=== PATIENT | male | born 1970 | race African-American/Black ===

== ENCOUNTER 2016-12-22 19:31 | Observation (INO) ==
[2016-12-22] MEDS ORDERED: methylPREDNISolone SOD SUC 125 MG/2 ML VIAL IV STA (19:52)
[2016-12-22] MEDS ORDERED: MORPHINE 2 MG/1 ML SYRINGE IV STA (19:52)
[2016-12-22] MEDS ORDERED: ONDANSETRON 4 MG/2 ML VIAL IV STA (19:52)
[2016-12-22] MEDS ORDERED: FUROSEMIDE 100 MG/10 ML VIAL IV STA (19:52)
[2016-12-22] MEDS ORDERED: NITROGLYCERIN 2% OINT 1 INCH/GM PACK TOP STA (19:52)
[2016-12-22] MEDS ORDERED: ASPIRIN EC 325 MG TABLET PO STA (19:52)
[2016-12-22] MEDS ORDERED: ALBUTEROL/IPRATROPIUM 3 ML NEB RESP TX STA (19:52)
[2016-12-22] MEDS ORDERED: ALUM/MAG/SIMETH/LIDO VISC 1:1 30 ML BOTTLE PO STA (19:54)
--- NOTE | 2016-12-22 19:57 | EKG Report ---
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
[2016-12-22 20:09] LABS: Basophils % 0.3 % (0.0-0.8); Eosinophils # 0.1 10*3/uL (0.0-0.87); Eosinophils % 3.1 % (0.00-10.9); Hemoglobin 12.5 GM/DL (14.0-18.0); Immature Granulocytes % 0.6 %; Immature Granulocytes Absolute 0.02 #; Lymphocytes # 1.2 10*3/uL (1.4-4.0); Lymphocytes % 33.9 % (21.2-54.2); Mean Corpuscular HGB Conc 31.3 GM/DL (32-36); Mean Corpuscular Hemoglobin 25 PG (27-34); Mean Corpuscular Volume 79.5 FL (87-102); Mean Platelet Volume 10.8 FL (9.6-12.0); Monocytes # 0.6 10*3/uL (0.11-0.8); Monocytes % 17.7 % (1.7-12.7); Neutrophils # 1.6 10*3/uL (1.4-7.4); Neutrophils % 44.4 % (38.7-73.9); Platelet Count 157 T/CUMM (130-400); Red Blood Count 5.03 MC/CUMM (3.8-5.5); White Blood Count 3.5 T/CUMM (4-12)
--- NOTE | 2016-12-22 20:12 | Emergency Department Note ---
Simon Huerta Rolonda, am scribing for, and in the presence of, Gerardo John MD 20:09. Alvaro Huerta Charles R, MD, personally performed the services described in this documentation, ascribed by Belen Montes in my presence, and it is both accurate and complete . Arrival - Arrival Chief Complaint: Shortness of Breath Stated Complaint: HARD TO BREATHE/CHEST CONGESTION ED Nursing Triage Note: patient ambulatory to triage with c/o sob for a week now that is getting worse. 96% o2 sat on ra, no distress noted at triage. midsternal cp, denies n/v Mode of Arrival: Ambulatory Limitations: No Limitations Source: Patient, Significant other, Old Records Reviewed, RN Notes Reviewed Time Seen by Provider: 12/22/16 19:45 - History of Present Illness HPI Narrative: Pt is a 46 y/o male who ambulated to the ED with c/o mid chest pain with an onset of days that has worsened. Pt stated that his pain worsened last night which prompted his visit to the ED. Pt states that he currently is taking Torsemide and confirms that he feels "heaviness with deep breaths", has sleep apnea, swelling in both lower extremities, and SOB. He also states that "something feels hard" on his chest and back area. Pt has associated sxs of wet cough. No other complaint/pain in ED. Onset (ago): day(s) Consistency: constant Severity: moderate, severe Severity scale (1-10): 5 Allergies/Adverse Reactions: Allergies Allergy/AdvReac Type Severity Reaction Status Date / Time No Known Allergies Allergy Unverified 12/22/16 20:35 Home Medications: Home Medications Medication Instructions Recorded Confirmed Type Aspirin EC Tab 325 mg PO DAILY 12/22/16 12/22/16 History Atorvastatin [Lipitor] 20 mg PO DAILY 12/22/16 12/22/16 History Carvedilol [Coreg] 6.25 mg PO BID 12/22/16 12/22/16 History Insulin Glargine [Lantus] 70 unit SUBCUT BID 12/22/16 12/22/16 History Potassium Chloride [Klor-Con M20] 20 meq PO DAILY 12/22/16 12/22/16 History Torsemide 100 mg PO BID 12/22/16 12/22/16 History Valsartan 320 mg PO DAILY 12/22/16 12/22/16 History amLODIPine [Norvasc] 10 mg PO DAILY 12/22/16 12/22/16 History Review of System - Review of System 12 point system: reviewed and no additional remarkable complaints except as stated - Review of System Constitutional: Absent: chills, fever Head/Ears/Nose/Throat: Absent: earache, epistaxis Respiratory: Present: cough (wet), respiratory distress (SOB) Cardiovascular: Present: chest pain (mid chest\\) Gastrointestinal: Absent: abdominal pain, nausea, vomiting, diarrhea Musculoskeletal: Absent: arm pain, back pain, neck pain Skin: Absent: rash Neurological: Absent: headache, numbness Medical,Surgical,& Family Hx - Medical History Cardio: History of: Hypertension Endocrine: History of: Diabetes Mellitus (IDDM), Dyslipidemia - Social History Smoking Status: Never smoker Frequency of Alcohol Use: None Type of Drug Use: None Exam Vital Signs: Vital Signs Temperature 98.1 F 12/22/16 19:32 Pulse Rate 82 12/22/16 20:30 Respiratory Rate 18 12/22/16 20:30 Blood Pressure 160/102 12/22/16 20:30 O2 Sat by Pulse Oximetry 98 12/22/16 20:30 - General General appearance: alert, in no apparent distress - Head Head exam: Present: atraumatic, normocephalic - Eye Eye exam: Present: PERRL, EOMI - ENT ENT exam: Present: mucous membranes moist. Absent: mucous membranes dry - Neck Neck exam: Present: full ROM. Absent: tenderness - Chest Chest inspection: Present: symmetric chest wall rise. Absent: tenderness - Respiratory Respiratory exam: Present: rales (bilaterally) - Cardiovascular Cardiovascular exam: Present: regular rate, normal rhythm, normal heart sounds. Absent: bradycardia - Abdominal Exam Abdominal exam: Present: soft, normal bowel sounds. Absent: tenderness - Extremities Exam Extremities exam: Present: pedal edema (+3 lower extremities) - Back Exam Back exam: Present: full ROM. Absent: tenderness - Neurological Exam Neurological exam: Present: alert, oriented X3, CN II-XII intact - Psychiatric Psychiatric exam: Present: normal affect, normal mood - Skin Skin exam: Present: warm, dry, intact, normal color. Absent: rash Course - Consultations Consultation #1: Hospitalist will admit patient Time: 22:30 Results - Labs CBC & BMP: 12/22/16 19:43 12/22/16 19:43 Lab Results: I have reviewed the patients labs Labs: Laboratory Tests 12/22/16 12/22/16 19:43 19:43 WBC 3.5 L RBC 5.03 Hgb 12.5 L Hct 40.0 L MCV 79.5 L MCH 25 L MCHC 31.3 L Plt Count 157 [place] % (Auto) 17.7 H Lymph # (Auto) 1.2 L INR 1.0 PT Patient/Control Mix 10.3 Laboratory Tests 12/22/16 19:43 Sodium 141 Potassium 3.9 Chloride 102 Carbon Dioxide 33 H BUN 19 H Creatinine 2.20 H GFR Calculation 59 Glucose 298 H Calcium 8.0 L AST 46 H Troponin I 0.132 H Albumin/Globulin Ratio 1.0 L Laboratory Tests 12/22/16 19:43 B-Natriuretic Peptide 28 Laboratory Tests 12/22/16 19:43 Total Counted 100 Segmented Neutrophils 39 L Band Neutrophils 3 Lymphocytes 38 Monocytes 16 H Eosinophils 4 Smudge Cells Few Platelet Estimate Normal Hypochromasia 1+ Microcytosis Slight - Diagnostic Findings Procedure: Chest x-ray: report reviewed by me (No acute abnormality.) Disposition Clinical Impression: Congestive heart failure, Pedal edema, Acute dyspnea, Renal insufficiency, Elevated troponin, Malignant hypertension Case discussed with: patient, patient's family Disposition: Still a Patient Condition: Guarded Time of Disposition: 22:32
[2016-12-22] MEDS ORDERED: NITROGLYCERIN 2% OINT 1 INCH/GM PACK TOP ONE (20:16)
[2016-12-22] MEDS ORDERED: ONDANSETRON 4 MG/2 ML VIAL ONE (20:16)
[2016-12-22] MEDS ORDERED: methylPREDNISolone SOD SUC 125 MG/2 ML VIAL ONE (20:17)
[2016-12-22] MEDS ORDERED: ASPIRIN 325 MG TABLET ONE (20:17)
[2016-12-22] MEDS ORDERED: FUROSEMIDE 100 MG/10 ML VIAL ONE (20:17)
[2016-12-22] MEDS ORDERED: ALUM/MAG/SIMETH/LIDO VISC 1:1 30 ML BOTTLE PO ONE (20:17)
[2016-12-22] MEDS ORDERED: MORPHINE 2 MG/1 ML SYRINGE ONE (20:17)
[2016-12-22 20:19] LABS: PT Patient Result 10.3 SECS
--- NOTE | 2016-12-22 20:20 | XRay Report ---
PA and lateral chest. Indication: Shortness of breath. No comparison. The heart and mediastinal contours are unremarkable. The pulmonary vasculature is normal. There is no consolidation, pneumothorax, or pleural effusion. Degenerative changes are noted within the thoracic spine. Impression: No acute abnormality. PROCEDURE INTERPRETED AT [facility] [place] DEPARTMENT OF RADIOLOGY Final Report Signed by: Dr. Kaycee Em
[2016-12-22 20:33] LABS: Alanine Aminotransferase 37 U/L (16-61); Albumin 3.4 G/DL (3.4-5.0); Alkaline Phosphatase 68 U/L (45-117); Aspartate Amino Transferase 46 U/L (0-37); Bilirubin,Total < 0.39 MG/DL (0.2-1.0); Blood Urea Nitrogen 19 MG/DL (7-18); Glucose 298 MG/DL (74-106); Magnesium 2.1 MG/DL (1.8-2.4); Osmolality,Calculated 293.3 MOS/KG (273-304); Potassium 3.9 MMOL/L (3.5-5.1); Sodium 141 MMOL/L (136-145); Total Protein 6.8 G/DL (6.4-8.3); Troponin I Only 0.132 NG/ML (0.00-0.045)
[2016-12-22 21:44] LABS: Band Neutrophils 3 % (0-10); Eosinophils 4 % (0-10); Hypochromasia 1+; Lymphocytes 38 % (20-55); Platelet Estimate Normal; Segmented Neutrophils 39 % (50-85); Total Cells Counted 100
[2016-12-22 21:45] LABS: Microcytosis Slight; Smudge Cells Few
[2016-12-22] MEDS ORDERED: INSULIN REGULAR 100 UNIT/ML SUBCUT ONE (23:46)
[2016-12-22] MEDS ORDERED: MORPHINE 2 MG/1 ML SYRINGE IV PRN (23:46)
[2016-12-22] MEDS ORDERED: ACETAMINOPHEN 325 MG TABLET PO PRN (23:46)
--- NOTE | 2016-12-22 23:56 | Hospitalist History & Physical ---
Assessment and Plan (1) Diabetes Status: Acute Current Visit: Yes (2) Pedal edema Status: Acute Current Visit: Yes (3) Acute dyspnea Status: Acute Current Visit: Yes (4) Renal insufficiency Status: Acute Current Visit: Yes (5) Elevated troponin Status: Acute Current Visit: Yes (6) Malignant hypertension Status: Acute Assessment and plan: Plan for this patient will be admitting him to our service. Consult cardiology. I will order a 2D echo. Serial enzymes will be drawn. His BNP was not elevated and he did not look like heart failure on chest x-ray. He does have rales on physical exam. And he has significant lower extremity edema. Will continue home meds as appropriate. Since we have to keep him n.p.o. will use a sliding scale for now. Current Visit: Yes History of Present Illness Chief complaint: Chest pain and shortness of breath History of present illness: Mr. Fountain is a 46 year old male with past medical history significant for diabetes, hypertension and aortic aneurysm who was in his normal state of health until today. Patient said that he had some chest pain. He related to a recent cough that he has had. He says it is dull and sort of squeezing. He says when the pain comes on it made him feel short of breath. There is no real radiation of the pain and no diaphoresis. Patient has a history of aortic aneurysm that originally he said was followed every year. His been 2 years since his last echo. He says that he has had stress tests in the past when he said this aneurysm evaluated. He normally got his healthcare in [place]. They have since relocated down to the [place] area. I was consulted to admit him to the emergency room. Home Medications Medication Instructions Recorded Confirmed Type Aspirin EC Tab 325 mg PO DAILY 12/22/16 12/22/16 History Atorvastatin [Lipitor] 20 mg PO DAILY 12/22/16 12/22/16 History Carvedilol [Coreg] 6.25 mg PO BID 12/22/16 12/22/16 History Insulin Glargine [Lantus] 70 unit SUBCUT BID 12/22/16 12/22/16 History Potassium Chloride [Klor-Con M20] 20 meq PO DAILY 12/22/16 12/22/16 History Torsemide 100 mg PO BID 07/07/17 07/07/17 History Valsartan 320 mg PO DAILY 12/22/16 12/22/16 History amLODIPine [Norvasc] 10 mg PO DAILY 12/22/16 12/22/16 History Allergies Allergy/AdvReac Type Severity Reaction Status Date / Time No Known Allergies Allergy Unverified 12/22/16 20:35 Medical,Surgical,& Family Hx - Medical History Cardio: History of: Hypertension Endocrine: History of: Diabetes Mellitus (IDDM), Dyslipidemia - Surgical History Surgical History: noncontributory (None) - Family History Family History: Reports;: Family Cancer, Family Diabetes, Family Heart Disease, Family Hypertension - Social History Smoking Status: Never smoker Frequency of Alcohol Use: None Type of Drug Use: None 12 point system: reviewed and no additional remarkable complaints except as stated Exam - Constitutional Vitals: Period Temp Pulse Resp BP Sys/Meng Pulse Ox Last 24 Hr 98.1 F-98.1 F 79-89 12-20 137-160/88-102 93-100 - General General appearance: alert, in no apparent distress - Head Head exam: Present: atraumatic, normocephalic - Eye Eye exam: Present: PERRL, EOMI - ENT ENT exam: Present: mucous membranes moist. - Neck Neck exam: Present: full ROM. Absent: tenderness - Chest Chest inspection: Present: symmetric chest wall rise. - Respiratory Respiratory exam: Present: rales (bilaterally) - Cardiovascular Cardiovascular exam: Present: regular rate, normal rhythm, normal heart sounds. - Abdominal Exam Abdominal exam: Present: soft, normal bowel sounds. - Extremities Exam Extremities exam: Present: pedal edema that appears to be chronic and 3+ - Back Exam Back exam: Present: full ROM. Absent: tenderness - Neurological Exam Neurological exam: Present: alert, oriented X3, CN II-XII intact - Psychiatric Psychiatric exam: Present: normal affect, normal mood - Skin Skin exam: Present: warm, dry, intact, normal color. Absent: rash Results - Labs CBC & BMP: 12/22/16 19:43 12/22/16 19:43
[2016-12-23] MEDS ORDERED: DEXTROSE 50% 25 GM/50 ML VIAL IV PRN (00:49)
[2016-12-23] MEDS ORDERED: GLUCAGON 1 MG VIAL IM PRN (00:49)
[2016-12-23] MEDS: NITROGLYCERIN 2% OINT 1 INCH/GM PACK TOP SCH ×4 (01:12→17:29)
[2016-12-23] MEDS: ENOXAPARIN 40 MG/0.4 ML SYRINGE SUBCUT SCH (01:54)
[2016-12-23 06:28] LABS: Albumin 3.6 G/DL (3.4-5.0); Bilirubin,Total 0.7 MG/DL (0.2-1.0); Calcium 8.1 MG/DL (8.5-10.1); Total Protein 7.6 G/DL (6.4-8.3)
[2016-12-23 06:29] LABS: Osmolality,Calculated 290.3 MOS/KG (273-304)
[2016-12-23] MEDS ORDERED: FUROSEMIDE 40 MG/4 ML VIAL IV SCH (08:00)
[2016-12-23] MEDS ORDERED: ATORVASTATIN 20 MG TABLET PO SCH ×2 (09:00→21:00)
[2016-12-23] MEDS: INSULIN REGULAR 100 UNIT/ML SUBCUT SCH ×4 (12:04→22:12)
[2016-12-23] MEDS: ASPIRIN EC 325 MG TABLET PO SCH (12:36)
[2016-12-23] MEDS: POTASSIUM CHLORIDE 20 MEQ TABLET PO SCH (12:36)
[2016-12-23] MEDS: VALSARTAN 160 MG TABLET PO SCH (12:36)
[2016-12-23] MEDS: amLODIPine 10 MG TABLET PO SCH (12:36)
[2016-12-23] MEDS: CARVEDILOL 6.25 MG TABLET PO SCH ×2 (12:37→21:39)
--- NOTE | 2016-12-23 13:20 | Hospitalist Progress Note ---
Assessment and Plan (1) Congestive heart failure Status: Acute Assessment and plan: The patient is met hospital with pulmonary edema. He is improving with diuresis. Kidney function is improving noted by declining creatinine. We will continue diuresis and recheck electrolytes tomorrow. Cardiology evaluation pending. Current Visit: Yes Qualifiers: Congestive heart failure type: systolic Congestive heart failure chronicity : acute on chronic Qualified Code(s): I50.23 - Acute on chronic systolic ( congestive) heart failure (2) Renal insufficiency Status: Chronic Current Visit: Yes (3) Diabetes Status: Chronic Current Visit: Yes Qualifiers: Diabetes mellitus type: type 2 Diabetes mellitus complication status: with circulatory complication Hospitalist: Subjective Interval history: Mr. Fountain is a 46 year old male with past medical history significant for diabetes, hypertension and aortic aneurysm who was in his normal state of health until today. Patient said that he had some chest pain. He related to a recent cough that he has had. He says it is dull and sort of squeezing. He says when the pain comes on it made him feel short of breath. There is no real radiation of the pain and no diaphoresis. Patient has a history of aortic aneurysm that originally he said was followed every year. His been 2 years since his last echo. The patient shortness of breath is improving with diuresis. Exam - Constitutional Vitals: Period Temp Pulse Resp BP Sys/Meng Pulse Ox Last 24 Hr 97.3 F-98.1 F 79-104 12-21 125-160/86-102 93-100 Exam: Constitutional System: Minimal distress. No tremulousness. Head: Normocephalic, atraumatic. Ears, Nose and Throat System: No evidence of Otitis or Mastoiditis. No epistaxis or discharge Eyes System: Pupils equal, round, and reactive. Extraocular muscles intact. Neck: Supple, without adenopathy, 1+ jugular venous distention. No thyromegaly , neck mass, or prior surgery apparent. Respiratory System: Chest rales in bases to auscultation. Cardiovascular System: Heart with regular rate and rhythm. No murmur. GI System: Abdomen soft, nontender. Normo active bowel sounds present. Musculoskeletal System: limbs with no pedal edema. Full distal pulses. Neurological System: No discernable sensory deficit. No aphasia Psychiatric System: Conversation is rational Results - Labs CBC & BMP: 12/22/16 19:43 12/23/16 05:20 Lab Results: I have reviewed the past 24 hour labs
[2016-12-23] MEDS ORDERED: INSULIN GLARGINE 100 UNIT/ML SUBCUT SCH (13:30)
--- NOTE | 2016-12-23 14:18 | EKG Report ---
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
[2016-12-23] MEDS: INSULIN GLARGINE 100 UNIT/ML SUBCUT SCH ×2 (16:06→22:12)
--- NOTE | 2016-12-23 16:18 | Cardiology Consult Note ---
Assessment and Plan - Time spent with patient Time spent with patient: Greater than 30 minutes (1) Chest pain in adult Status: Acute Assessment and plan: His chest pain is related to coughing, so sounds like either pleurisy or muscle skeletal pain. Less likely could be GI or CAD related. The [place] troponins are flat and do not necessarily indicate CAD. They could relate to his diabetes or renal insufficiency. Plan/recommendations: Continue the aspirin today Agree with low-dose Lovenox Treat chest wall pain-Tylenol, tramadol, gabapentin We will avoid NSAIDs because of his renal insufficiency In the course of the evaluation, it was decided the patient needed to have an echocardiogram for the pts management. It was ordered. I will review it. Mucinex 600 mg p.o. twice daily Agree with ismael elizondo Feed patient He and I discussed evaluating the chest pain at some point with an outpatient treadmill/Cardiolite I would favor not doing a heart cath at this point because of his diabetes and a creatinine of 2.0 would make him at higher risk than usual for contrast induced nephropathy. If he had a more stronger indication for cath I would do so, such as if he had a positive treadmill/Cardiolite. I encouraged the patient's to bring his CPAP so he could use it at night. The above was discussed with the patient and his . They voiced understanding and agree with the plan. Thank you for allowing me to participate in this patient's care Current Visit: Yes (2) Coughing Status: Acute Current Visit: Yes (3) Bronchitis Status: Acute Current Visit: Yes (4) Obstructive sleep apnea on CPAP Status: Acute Current Visit: Yes (5) Aortic aneurysm Status: Acute Current Visit: Yes (6) Overweight Status: Acute Current Visit: Yes (7) Elevated troponin Status: Acute Current Visit: Yes (8) Diabetes Status: Chronic Current Visit: Yes Qualifiers: Diabetes mellitus type: type 2 Diabetes mellitus complication status: with circulatory complication (9) Renal insufficiency Status: Chronic Current Visit: Yes History of Present Illness - Data of Consult Patient: new to practice Consult date: 12/23/16 Requesting Physician: Edi Springer - Consult Narrative Reason for consult: Evaluate chest pain History of present illness: Mr. Fountain is a 46 year old male PCP: None here, he just transferred from [facility] Visual Display Manager: None- can be me He states his negative chest pain lately. He believes is related to his cough. When he coughs it hurts his chest. It is an ache. It is his right anterior chest and does not radiate to his neck arms or back. Is unrelated to exertion, position, or meals. It stops when he stops coughing. It did last a few minutes. There is some associated shortness breath with a cough but no nausea or diaphoresis. No orthopnea, PND, edema, palpitations, syncope. No wheezing. He does have some phlegm. Past medical history: Does not know if have any renal insufficiency-creatinine is 2.2 here History of aortic aneurysm-? 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 these positions SPH: No, yes, yes and yes Diabetes Overweight Obstructive sleep apnea-usually uses CPAP, does not have it now Has had some bronchitis lately CC: Edi Springer MD - Home Medications and Allergies Home Medications: Home Medications Medication Instructions Recorded Confirmed Type Aspirin EC Tab 325 mg PO DAILY 12/22/16 12/23/16 History Atorvastatin [Lipitor] 20 mg PO DAILY 12/22/16 12/23/16 History Carvedilol [Coreg] 6.25 mg PO BID 12/22/16 12/23/16 History Insulin Glargine [Lantus] 70 unit SUBCUT BID 12/22/16 12/23/16 History Potassium Chloride [Klor-Con M20] 20 meq PO DAILY 12/22/16 12/23/16 History Torsemide 100 mg PO BID 12/22/16 12/23/16 History Valsartan 320 mg PO DAILY 12/22/16 12/23/16 History amLODIPine [Norvasc] 10 mg PO DAILY 12/22/16 12/23/16 History Allergies/Adverse Reactions: Allergies Allergy/AdvReac Type Severity Reaction Status Date / Time No Known Allergies Allergy Unverified 12/22/16 20:35 12 point system: reviewed and no additional remarkable complaints except as stated (A 12 point review of systems is negative except for as mentioned in HPI. ) Medical,Surgical,& Family Hx - Medical History Cardio: History of: Hypertension Endocrine: History of: Diabetes Mellitus (IDDM), Dyslipidemia - Surgical History Neurologic Surgeries: Patient denies: Neurologic Surgery Abdominal Surgeries: Patient denies: Abdominal Surgery Reproductive Surgeries: Patient denies;: Genitourinary Surgery - Family History Family History: Reports;: Family Cancer, Family Diabetes, Family Heart Disease, Family Hypertension - Social History Smoking Status: Never smoker Frequency of Alcohol Use: None Type of Drug Use: None Marital Status: Lives With:: Spouse Functional capacity: independent ambulation Physical Examination Vital Signs Temp Pulse Resp BP Pulse Ox 98.1 F 89 20 137/88 96 12/22/16 19:32 12/22/16 19:32 12/22/16 19:32 12/22/16 19:32 12/22/16 19:32 Exam: HEENT: Pupils equal, reactive to light and accommodation Neck: NoJVD or bruit Lungs clear to auscultation Heart: Regular rhythm rate with normal S1 and S2. Apical S4 Abdomen: No hepatosplenomegaly Spine/extremities: No clubbing, cyanosis, or edema Neuro: Nonfocal Psych: No depression or anxiety No pain on pressing of the chest. Result/EKG - Labs CBC & BMP: 12/22/16 19:43 12/23/16 05:20 Lab Results: I have reviewed the past 24 hour labs Labs: Laboratory Results - last 24 hr 12/22/16 12/22/16 12/22/16 19:43 19:43 19:43 WBC 3.5 L RBC 5.03 Hgb 12.5 L Hct 40.0 L MCV 79.5 L MCH 25 L MCHC 31.3 L RDW 15.0 Plt Count 157 MPV 10.8 Neut % (Auto) 44.4 Lymph % (Auto) 33.9 [place] % (Auto) 17.7 H Eos % (Auto) 3.1 Baso % (Auto) 0.3 Neut # (Auto) 1.6 Lymph # (Auto) 1.2 L [place] # (Auto) 0.6 Eos # (Auto) 0.1 Baso # (Auto) 0.0 Total Counted 100 Immature Gran % 0.6 Nucleated RBC % 0.0 Immature Gran # 0.02 Segmented Neutrophils 39 L Band Neutrophils 3 Lymphocytes 38 Monocytes 16 H Eosinophils 4 Nucleated RBCs # 0.00 Smudge Cells Few Platelet Estimate Normal Hypochromasia 1+ Microcytosis Slight INR 1.0 PT Patient/Control Mix 10.3 Sodium 141 Potassium 3.9 Chloride 102 Carbon Dioxide 33 H Anion Gap 9.9 BUN 19 H Creatinine 2.20 H GFR Calculation 59 BUN/Creatinine Ratio 8.00 Glucose 298 H POC Glucose Calculated Osmolality 293.3 Calcium 8.0 L Magnesium 2.1 Total Bilirubin < 0.39 AST 46 H ALT 37 Alkaline Phosphatase 68 Troponin I 0.132 H B-Natriuretic Peptide Total Protein 6.8 Albumin 3.4 Globulin 3.4 Albumin/Globulin Ratio 1.0 L 12/22/16 12/23/16 12/23/16 19:43 00:46 05:20 WBC RBC Hgb Hct MCV MCH MCHC RDW Plt Count MPV Neut % (Auto) Lymph % (Auto) [place] % (Auto) Eos % (Auto) Baso % (Auto) Neut # (Auto) Lymph # (Auto) [place] # (Auto) Eos # (Auto) Baso # (Auto) Total Counted Immature Gran % Nucleated RBC % Immature Gran # Segmented Neutrophils Band Neutrophils Lymphocytes Monocytes Eosinophils Nucleated RBCs # Smudge Cells Platelet Estimate Hypochromasia Microcytosis INR PT Patient/Control Mix Sodium Potassium Chloride Carbon Dioxide Anion Gap BUN Creatinine GFR Calculation BUN/Creatinine Ratio Glucose POC Glucose Calculated Osmolality Calcium Magnesium Total Bilirubin AST ALT Alkaline Phosphatase Troponin I 0.121 H 0.103 H B-Natriuretic Peptide 28 Total Protein Albumin Globulin Albumin/Globulin Ratio 12/23/16 12/23/16 12/23/16 05:20 05:20 07:59 WBC RBC Hgb Hct MCV MCH MCHC RDW Plt Count MPV Neut % (Auto) Lymph % (Auto) [place] % (Auto) Eos % (Auto) Baso % (Auto) Neut # (Auto) Lymph # (Auto) [place] # (Auto) Eos # (Auto) Baso # (Auto) Total Counted Immature Gran % Nucleated RBC % Immature Gran # Segmented Neutrophils Band Neutrophils Lymphocytes Monocytes Eosinophils Nucleated RBCs # Smudge Cells Platelet Estimate Hypochromasia Microcytosis INR PT Patient/Control Mix Sodium 141 Potassium 5.0 Chloride 101 Carbon Dioxide 33 H Anion Gap 12.0 BUN 19 H Creatinine 2.00 H GFR Calculation 67 BUN/Creatinine Ratio 9.00 Glucose 244 H POC Glucose 247 H Calculated Osmolality 290.3 Calcium 8.1 L Magnesium Total Bilirubin 0.70 AST 42 H ALT 41 Alkaline Phosphatase 73 Troponin I 0.107 H B-Natriuretic Peptide Total Protein 7.6 Albumin 3.6 Globulin 4.0 H Albumin/Globulin Ratio 0.9 L 12/23/16 11:26 WBC RBC Hgb Hct MCV MCH MCHC RDW Plt Count MPV Neut % (Auto) Lymph % (Auto) [place] % (Auto) Eos % (Auto) Baso % (Auto) Neut # (Auto) Lymph # (Auto) [place] # (Auto) Eos # (Auto) Baso # (Auto) Total Counted Immature Gran % Nucleated RBC % Immature Gran # Segmented Neutrophils Band Neutrophils Lymphocytes Monocytes Eosinophils Nucleated RBCs # Smudge Cells Platelet Estimate Hypochromasia Microcytosis INR PT Patient/Control Mix Sodium Potassium Chloride Carbon Dioxide Anion Gap BUN Creatinine GFR Calculation BUN/Creatinine Ratio Glucose POC Glucose 236 H Calculated Osmolality Calcium Magnesium Total Bilirubin AST ALT Alkaline Phosphatase Troponin I B-Natriuretic Peptide Total Protein Albumin Globulin Albumin/Globulin Ratio - Diagnostic Findings Procedure: Chest x-ray: report reviewed by me - EKG EKG results: interpreted by me
[2016-12-23] MEDS: GABAPENTIN 100 MG CAPSULE PO SCH ×2 (16:25→21:39)
[2016-12-23] MEDS: traMADol 50 MG TABLET PO SCH ×2 (16:25→21:39)
[2016-12-23] MEDS: ACETAMINOPHEN 325 MG TABLET PO SCH ×2 (16:25→21:39)
[2016-12-23] MEDS: FUROSEMIDE 40 MG/4 ML VIAL IV SCH (16:27)
[2016-12-24] MEDS: ENOXAPARIN 40 MG/0.4 ML SYRINGE SUBCUT SCH (00:29)
[2016-12-24] MEDS: NITROGLYCERIN 2% OINT 1 INCH/GM PACK TOP SCH ×3 (00:30→13:49)
[2016-12-24 06:23] LABS: Calcium 8.1 MG/DL (8.5-10.1); Magnesium 2.6 MG/DL (1.8-2.4); Osmolality,Calculated 291.4 MOS/KG (273-304); Potassium 4.5 MMOL/L (3.5-5.1)
--- NOTE | 2016-12-24 07:22 | ECHO Report ---
Jose Fountain Exam Date: 12/23/2016 11:27 Referring Physician: Technologist: Ashley Moreno Age: 46 Ht (in): 72 Wt (lb): 295 Gender: M Exam Location: [facility] Echo Indications: HTN, elevated troponin, chest pain, SOB, diabetes, edema, acute dyspnea BP: 125 / 90 HR: 98 Rhythm: sinus tavhycardia Technical Quality: Good IMPRESSIONS Moderate concentric left ventricular hypertrophy with diastolic dysfunction. Left ventricular ejection fraction is estimated at > 55 %. Moderately increased left atrial diameter. The right atrium is mildly enlarged. Mildly increased right ventricular size. Mild mitral valve regurgitation. Mild aortic valve sclerosis. MEASUREMENTS (Male / Female) Normal Values 2D ECHO LV Diastolic Diameter PLAX 4.3 cm 4.2 - 5.9 / 3.9 - 5.3 cm LV Systolic Diameter PLAX 3.1 cm LV Fractional Shortening PLAX 27.2 % IVS Diastolic Thickness 1.7 cm 0.6 - 1.0 / 0.6 - 0.9 cm LVPW Diastolic Thickness 1.7 cm 0.6 - 1.0 / 0.6 - 0.9 cm RV Internal Dim ED PLAX 2.9 cm Aortic Root Diameter 3.3 cm LA Systolic Diameter LX 4.7 cm 3.0 - 4.0 / 2.7 - 3.8 cm FINDINGS Left Ventricle Moderately increased septal wall thickness. Moderate concentric left ventricular hypertrophy with diastolic dysfunction. Left ventricular ejection fraction is estimated at > 55 %. Right Ventricle Mildly increased right ventricular size. Right Atrium The right atrium is mildly enlarged. Left Atrium Moderately increased left atrial diameter. Mitral Valve Mild mitral valve sclerosis. Mild mitral valve regurgitation. Aortic Valve Mild aortic valve sclerosis. Tricuspid Valve Morphologically normal tricuspid valve. Pulmonic Valve Morphologically normal pulmonic valve. Pericardium No pericardial effusion. Aorta Normal size aortic root and proximal ascending aorta. Chintan Mccain MD (Electronically Signed) Final Date: 24 December 2016 07:21
[2016-12-24] MEDS ORDERED: ASPIRIN EC 325 MG TABLET PO SCH (09:00)
[2016-12-24] MEDS: INSULIN REGULAR 100 UNIT/ML SUBCUT SCH ×2 (09:18→12:52)
[2016-12-24] MEDS: INSULIN GLARGINE 100 UNIT/ML SUBCUT SCH (09:18)
[2016-12-24] MEDS: VALSARTAN 160 MG TABLET PO SCH (09:19)
[2016-12-24] MEDS: FUROSEMIDE 40 MG/4 ML VIAL IV SCH (09:19)
[2016-12-24] MEDS: GABAPENTIN 100 MG CAPSULE PO SCH (09:19)
[2016-12-24] MEDS: ACETAMINOPHEN 325 MG TABLET PO SCH (09:19)
[2016-12-24] MEDS: POTASSIUM CHLORIDE 20 MEQ TABLET PO SCH (09:19)
[2016-12-24] MEDS: amLODIPine 10 MG TABLET PO SCH (09:19)
[2016-12-24] MEDS: ASPIRIN EC 325 MG TABLET PO SCH (09:19)
[2016-12-24] MEDS: traMADol 50 MG TABLET PO SCH (09:20)
[2016-12-24] MEDS: CARVEDILOL 6.25 MG TABLET PO SCH (09:20)
[2016-12-24] MEDS ORDERED: ALBUTEROL/IPRATROPIUM 3 ML NEB RESP TX SCH (11:00)
--- NOTE | 2016-12-24 11:40 | Cardiology Progress Note ---
Assessment and Plan (1) Chest pain in adult Status: Acute Assessment and plan: His chest pain is related to coughing, so sounds like either pleurisy or muscle skeletal pain. Less likely could be GI or CAD related. The soto zone troponins are flat and do not necessarily indicate CAD. They could relate to his diabetes or renal insufficiency. Plan/recommendations: Continue the aspirin today Agree with low-dose Lovenox Treat chest wall pain-Tylenol, tramadol, gabapentin We will avoid NSAIDs because of his renal insufficiency In the course of the evaluation, it was decided the patient needed to have an echocardiogram for the pts management. It was ordered. I will review it. Mucinex 600 mg p.o. twice daily Agree with ismael elizondo Feed patient He and I discussed evaluating the chest pain at some point with an outpatient treadmill/Cardiolite I would favor not doing a heart cath at this point because of his diabetes and a creatinine of 2.0 would make him at higher risk than usual for contrast induced nephropathy. If he had a more stronger indication for cath I would do so, such as if he had a positive treadmill/Cardiolite. I encouraged the patient's to bring his CPAP so he could use it at night. The above was discussed with the patient and his . They voiced understanding and agree with the plan. Thank you for allowing me to participate in this patient's care 12/24/16 Chest pain is now gone, it probably is musculoskeletal, better with the chest wall pain treatment From my standpoint, okay to get home when you say so. You could consider getting a electric gas appliances demonstrator to help with his phlegm and coughing I will see him back in my office after 01/27/17. At that point we would consider doing a stress test with Cardiolite He will continue his low-dose aspirin each day. I will give a trial of DuoNeb's to see if it helps him get his phlegm up and out of his lungs Thank you for allowing me to participate in this patient's care Current Visit: Yes (2) Coughing Status: Acute Current Visit: Yes (3) Bronchitis Status: Acute Current Visit: Yes (4) Obstructive sleep apnea on CPAP Status: Acute Current Visit: Yes (5) Aortic aneurysm Status: Acute Current Visit: Yes (6) Overweight Status: Acute Current Visit: Yes (7) Elevated troponin Status: Acute Current Visit: Yes (8) Diabetes Status: Chronic Current Visit: Yes Qualifiers: Diabetes mellitus type: type 2 Diabetes mellitus complication status: with circulatory complication (9) Renal insufficiency Status: Chronic Current Visit: Yes Cardiology - PN: Subj Interval history: His left chest pain is now gone. However he is to continue to cough and he has difficulty getting up the phlegm. Exam (Progress Note) - Constitutional Vitals: Period Temp Pulse Resp BP Sys/Meng Pulse Ox Last 24 Hr 96.7 F-98.0 F 73-104 16-20 127-158/83-96 90-100 Exam: HEENT: Pupils equal, reactive to light and accommodation Neck: NoJVD or bruit Lungs clear to auscultation Heart: Regular rhythm rate with normal S1 and S2. Apical S4, 2/6 systolic ejection murmur along left sternal border Abdomen: No hepatosplenomegaly Spine/extremities: No clubbing, cyanosis, or edema Neuro: Nonfocal Psych: No depression or anxiety Result/EKG - Labs CBC & BMP: 12/22/16 19:43 12/24/16 05:10 Labs: Laboratory Results - last 24 hr 12/23/16 12/23/16 12/24/16 16:22 21:43 05:10 Sodium 140 Potassium 4.5 Chloride 100 Carbon Dioxide 34 H Anion Gap 10.5 BUN 32 H D Creatinine 2.00 H GFR Calculation 67 BUN/Creatinine Ratio 16.00 Glucose 215 H POC Glucose 315 H 319 H Calculated Osmolality 291.4 Calcium 8.1 L Magnesium 2.6 H B-Natriuretic Peptide 12/24/16 12/24/16 05:10 08:10 Sodium Potassium Chloride Carbon Dioxide Anion Gap BUN Creatinine GFR Calculation BUN/Creatinine Ratio Glucose POC Glucose 196 H Calculated Osmolality Calcium Magnesium B-Natriuretic Peptide 36 Specialty Discharge - Follow Up or Referrals Follow up with: Chintan Mccain MD [Physician] - (Appointment with me after 01/27/17)
--- NOTE | 2016-12-24 12:29 | Discharge Summary ---
Hospital Course - Hospital Course Hospital Course: The patient was admitted to the hospital with chest pressure. Myocardial infarction was ruled out by EKG and enzymes. The patient had cardiology evaluation with Dr. mccain. The patient has evident obesity hypoventilation syndrome and uses CPAP machine at night. The patient has some mild cor pulmonale with lower extremity edema. The patient was counseled to restart daily exercise program with walking and he will also follow-up with Dr. mccain on January 25 for further evaluation of blood pressure and shortness of breath. Examination on the date of discharge revealed clear chest and heart has regular rate and rhythm. The patient is a former smoker and was given 4 minutes encouragement to continue off tobacco. Total discharge time 33 minutes. Diagnosis - Discharge Diagnosis (1) Congestive heart failure Status: Acute (2) Renal insufficiency Status: Chronic (3) Diabetes Status: Chronic Specialty Discharge - Follow Up or Referrals Follow up with: Chintan Mccain MD [Physician] - (Appointment with me after 01/27/17) Discharge Plan - Discharge Medications No Action amLODIPine [Norvasc] 10 mg PO DAILY Potassium Chloride [Klor-Con M20] 20 meq PO DAILY Carvedilol [Coreg] 6.25 mg PO BID Atorvastatin [Lipitor] 20 mg PO DAILY Torsemide 100 mg PO BID Insulin Glargine [Lantus] 70 unit SUBCUT BID Aspirin EC Tab 325 mg PO DAILY Valsartan 320 mg PO DAILY - Follow Up or Referral Follow Up: Chintan Mccain MD [Physician] - (Appointment with me after 01/27/17) - Forms/Instructions Exam - Constitutional Vitals: Period Temp Pulse Resp BP Sys/Meng Pulse Ox Last 24 Hr 96.7 F-97.5 F 73-93 16-20 127-147/83-96 90-100 Discharge Results Labs on day of discharge: Labs from last 24 hours 12/24/16 12/24/16 12/24/16 11:27 08:10 05:10 Sodium Potassium Chloride Carbon Dioxide Anion Gap BUN Creatinine GFR Calculation BUN/Creatinine Ratio Glucose POC Glucose 184 H 196 H Calculated Osmolality Calcium Magnesium B-Natriuretic Peptide 36 12/24/16 12/23/16 12/23/16 05:10 21:43 16:22 Sodium 140 Potassium 4.5 Chloride 100 Carbon Dioxide 34 H Anion Gap 10.5 BUN 32 H D Creatinine 2.00 H GFR Calculation 67 BUN/Creatinine Ratio 16.00 Glucose 215 H POC Glucose 319 H 315 H Calculated Osmolality 291.4 Calcium 8.1 L Magnesium 2.6 H B-Natriuretic Peptide DS: Provider Date of admission: 12/22/16 23:15 Primary care physician: . No PCP Attending physician on admission: Marin Mahoney MD Consults: 12/22/16 23:50 Consult to Physician [CONS] Routine Comment: Consulting Provider: Cardiology - [facility] Consult to Specialist Group: Cardiology When should Consulting Provider be notified: In am Discharging clinician: Edi Springer MD
[2016-12-24 12:51] VITALS: BP 136/90
--- NOTE | 2016-12-24 14:10 | EKG Report ---
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
== END 2016-12-24 14:14 | disposition home or self-care (01) ==
LOC: N.EDINP 19:31 → N.ED 19:31 → SUATTDRO 23:15 → N.TELES 12-23 00:20
PROVIDERS: ADMIT Internal Medicine; ATTEND Internal Medicine

== ENCOUNTER 2017-05-24 21:23 | Inpatient (IN) ==
[2017-05-24] MEDS ORDERED: ONDANSETRON 4 MG/2 ML VIAL IV STA (22:48)
[2017-05-24] MEDS ORDERED: methylPREDNISolone SOD SUC 125 MG/2 ML VIAL IV STA (22:48)
[2017-05-24] MEDS ORDERED: FUROSEMIDE 100 MG/10 ML VIAL IV STA (22:48)
[2017-05-24] MEDS ORDERED: MORPHINE 2 MG/1 ML SYRINGE IV STA (22:48)
[2017-05-24] MEDS ORDERED: ALBUTEROL 2.5 MG/3 ML NEB RESP TX SCH (23:00)
[2017-05-24] MEDS ORDERED: MORPHINE 2 MG/1 ML SYRINGE ONE (23:16)
[2017-05-24] MEDS ORDERED: ONDANSETRON 4 MG/2 ML VIAL ONE (23:16)
[2017-05-24] MEDS ORDERED: methylPREDNISolone SOD SUC 125 MG/2 ML VIAL ONE (23:16)
[2017-05-24] MEDS ORDERED: FUROSEMIDE 40 MG/4 ML VIAL ONE (23:17)
[2017-05-24] MEDS ORDERED: FUROSEMIDE 20 MG/2 ML VIAL ONE (23:17)
[2017-05-24 23:35] LABS: Basophils % 0.3 % (0.0-0.8); Eosinophils # 0.1 10*3/uL (0.0-0.87); Eosinophils % 1.2 % (0.00-10.9); Hematocrit 40.6 VOL% (42.0-52.0); Hemoglobin 12.5 GM/DL (14.0-18.0); Immature Granulocytes % 0.3 %; Immature Granulocytes Absolute 0.02 #; Lymphocytes # 1.1 10*3/uL (1.4-4.0); Lymphocytes % 18.2 % (21.2-54.2); Mean Corpuscular HGB Conc 30.8 GM/DL (32-36); Mean Corpuscular Hemoglobin 25 PG (27-34); Mean Platelet Volume 11.1 FL (9.6-12.0); Monocytes # 0.6 10*3/uL (0.11-0.8); Monocytes % 9.6 % (1.7-12.7); Neutrophils # 4.1 10*3/uL (1.4-7.4); Neutrophils % 70.4 % (38.7-73.9); Platelet Count 179 T/CUMM (130-400); Red Blood Count 5.01 MC/CUMM (3.8-5.5); Red Cell Distribution Width 14.8 % (9.3-17.3); White Blood Count 5.8 T/CUMM (4-12)
[2017-05-24 23:41] LABS: Apearance,Urine CLEAR (Clear); Bilirubin,Urine Negative (Negative); Blood, Urine Moderate mg/dL (Negative); Glucose,Urine (UA) 150 mg/dL (Negative); Ketones,Urine Negative (Negative); Nitrite,Urine Negative (Negative); Protein,Urine 100 MG/DL; RBC,Urine 25 /HPF (0-4); Squamous Epithelial Cell,Urine Occasional /HPF (0-10); Urine Color Yellow (Yellow); Urine Specific Gravity 1.012 (1.001-1.035); Urine Urobilinogen < 2.0 EU/DL (0.2-1.0); WBC,Urine 1 /HPF (0-6)
[2017-05-24 23:48] LABS: PT Patient Result 10.1 SECS
[2017-05-24 23:56] LABS: Alanine Aminotransferase 34 U/L (16-61); Albumin 3.4 G/DL (3.4-5.0); Alkaline Phosphatase 58 U/L (45-117); Aspartate Amino Transferase 27 U/L (0-37); Bilirubin,Total < 0.39 MG/DL (0.2-1.0); Calcium 8.5 MG/DL (8.5-10.1); Total Protein 6.9 G/DL (6.4-8.3)
[2017-05-24 23:57] LABS: Blood Urea Nitrogen 23 MG/DL (7-18); Glucose 182 MG/DL (74-106); Magnesium 2.1 MG/DL (1.8-2.4); Osmolality,Calculated 289.3 MOS/KG (273-304); Sodium 141 MMOL/L (136-145)
[2017-05-24 23:59] LABS: Troponin I Only 0.067 NG/ML (0.00-0.045)
[2017-05-25] MEDS ORDERED: DEXTROSE 50% 25 GM/50 ML VIAL IV PRN (03:04)
[2017-05-25] MEDS ORDERED: ONDANSETRON 4 MG/2 ML VIAL IV PRN (03:04)
[2017-05-25] MEDS ORDERED: ACETAMINOPHEN 325 MG TABLET PO PRN (03:04)
[2017-05-25] MEDS ORDERED: GLUCAGON 1 MG VIAL IM PRN (03:04)
[2017-05-25] MEDS: ENOXAPARIN 30 MG/0.3 ML SYRINGE SUBCUT SCH (05:25)
[2017-05-25 06:33] LABS: Calcium 8.5 MG/DL (8.5-10.1); Osmolality,Calculated 291.3 MOS/KG (273-304); Potassium 4.1 MMOL/L (3.5-5.1)
[2017-05-25 06:42] LABS: Risk Ratio 3.37; Thyroid Stimulating Hormone 1.3 uIU/ml (0.358-3.74); VLDL CHOLESTEROL 9.2 MG/DL
[2017-05-25] MEDS ORDERED: CARVEDILOL 6.25 MG TABLET PO SCH (09:00)
[2017-05-25] MEDS ORDERED: TORSEMIDE 50 MG PO SCH (09:00)
[2017-05-25] MEDS: amLODIPine 10 MG TABLET PO SCH (09:31)
[2017-05-25] MEDS: ASPIRIN EC 325 MG TABLET PO SCH (09:31)
[2017-05-25] MEDS: VALSARTAN 160 MG TABLET PO SCH (09:31)
[2017-05-25] MEDS: POTASSIUM CHLORIDE 20 MEQ TABLET PO SCH (09:31)
[2017-05-25] MEDS: FUROSEMIDE 40 MG/4 ML VIAL IV SCH ×2 (09:32→17:19)
[2017-05-25] MEDS: INSULIN LISPRO 100 UNIT/ML SUBCUT SCH ×4 (09:33→21:38)
[2017-05-25] MEDS: INSULIN GLARGINE 100 UNIT/ML SUBCUT SCH ×2 (09:51→21:38)
[2017-05-25] MEDS: MONTELUKAST 10 MG TABLET PO SCH (21:38)
[2017-05-25] MEDS: ATORVASTATIN 20 MG TABLET PO SCH (21:38)
[2017-05-25] MEDS: CARVEDILOL 12.5 MG TABLET PO SCH (21:38)
[2017-05-26 04:34] LABS: Basophils % 0.1 % (0.0-0.8); Eosinophils % 0.1 % (0.00-10.9); Hematocrit 38.1 VOL% (42.0-52.0); Hemoglobin 11.5 GM/DL (14.0-18.0); Immature Granulocytes % 0.4 %; Immature Granulocytes Absolute 0.03 #; Lymphocytes # 1.4 10*3/uL (1.4-4.0); Lymphocytes % 16.7 % (21.2-54.2); Mean Corpuscular HGB Conc 30.2 GM/DL (32-36); Mean Corpuscular Hemoglobin 25 PG (27-34); Mean Corpuscular Volume 81.6 FL (87-102); Mean Platelet Volume 11.3 FL (9.6-12.0); Monocytes # 0.9 10*3/uL (0.11-0.8); Monocytes % 10.4 % (1.7-12.7); Neutrophils # 6.2 10*3/uL (1.4-7.4); Neutrophils % 72.3 % (38.7-73.9); Platelet Count 177 T/CUMM (130-400); Red Blood Count 4.67 MC/CUMM (3.8-5.5); Red Cell Distribution Width 15.1 % (9.3-17.3); White Blood Count 8.6 T/CUMM (4-12)
[2017-05-26 05:19] LABS: Calcium 8.3 MG/DL (8.5-10.1); Magnesium 2.2 MG/DL (1.8-2.4); Osmolality,Calculated 295.1 MOS/KG (273-304); Potassium 4.6 MMOL/L (3.5-5.1)
[2017-05-26 05:20] LABS: Calcium 8.6 MG/DL (8.5-10.1); Osmolality,Calculated 293.3 MOS/KG (273-304); Potassium 4.6 MMOL/L (3.5-5.1)
[2017-05-26] MEDS: ENOXAPARIN 30 MG/0.3 ML SYRINGE SUBCUT SCH (06:10)
[2017-05-26] MEDS: INSULIN LISPRO 100 UNIT/ML SUBCUT SCH ×4 (07:57→21:56)
[2017-05-26] MEDS: INSULIN GLARGINE 100 UNIT/ML SUBCUT SCH ×2 (08:24→21:46)
[2017-05-26] MEDS: FUROSEMIDE 40 MG/4 ML VIAL IV SCH ×2 (08:25→15:35)
[2017-05-26] MEDS: amLODIPine 10 MG TABLET PO SCH (08:26)
[2017-05-26] MEDS: ASPIRIN EC 325 MG TABLET PO SCH (08:26)
[2017-05-26] MEDS: VALSARTAN 160 MG TABLET PO SCH (08:26)
[2017-05-26] MEDS: POTASSIUM CHLORIDE 20 MEQ TABLET PO SCH (08:26)
[2017-05-26] MEDS: CARVEDILOL 12.5 MG TABLET PO SCH ×2 (08:26→21:44)
[2017-05-26] MEDS: ATORVASTATIN 20 MG TABLET PO SCH (21:44)
[2017-05-26] MEDS: MONTELUKAST 10 MG TABLET PO SCH (21:44)
[2017-05-27] MEDS: ENOXAPARIN 30 MG/0.3 ML SYRINGE SUBCUT SCH (04:41)
[2017-05-27 05:53] LABS: Calcium 8.5 MG/DL (8.5-10.1); Magnesium 2.4 MG/DL (1.8-2.4); Osmolality,Calculated 291.7 MOS/KG (273-304); Potassium 3.9 MMOL/L (3.5-5.1)
[2017-05-27 06:10] LABS: Basophils % 0.6 % (0.0-0.8); Eosinophils # 0.1 10*3/uL (0.0-0.87); Eosinophils % 1.1 % (0.00-10.9); Hematocrit 38.4 VOL% (42.0-52.0); Hemoglobin 11.8 GM/DL (14.0-18.0); Immature Granulocytes % 0.4 %; Immature Granulocytes Absolute 0.02 #; Lymphocytes # 1.4 10*3/uL (1.4-4.0); Lymphocytes % 25.2 % (21.2-54.2); Mean Corpuscular HGB Conc 30.7 GM/DL (32-36); Mean Corpuscular Hemoglobin 25 PG (27-34); Mean Platelet Volume 11.5 FL (9.6-12.0); Monocytes # 0.6 10*3/uL (0.11-0.8); Monocytes % 11.5 % (1.7-12.7); Neutrophils # 3.3 10*3/uL (1.4-7.4); Neutrophils % 61.2 % (38.7-73.9); Platelet Count 185 T/CUMM (130-400); Red Blood Count 4.74 MC/CUMM (3.8-5.5); White Blood Count 5.4 T/CUMM (4-12)
[2017-05-27] MEDS: INSULIN LISPRO 100 UNIT/ML SUBCUT SCH ×4 (08:00→21:49)
[2017-05-27] MEDS: FUROSEMIDE 40 MG/4 ML VIAL IV SCH ×2 (10:01→16:50)
[2017-05-27] MEDS: INSULIN GLARGINE 100 UNIT/ML SUBCUT SCH ×2 (10:02→21:48)
[2017-05-27] MEDS: amLODIPine 10 MG TABLET PO SCH (10:02)
[2017-05-27] MEDS: POTASSIUM CHLORIDE 20 MEQ TABLET PO SCH (10:02)
[2017-05-27] MEDS: VALSARTAN 160 MG TABLET PO SCH (10:02)
[2017-05-27] MEDS: ASPIRIN EC 325 MG TABLET PO SCH (10:03)
[2017-05-27] MEDS: CARVEDILOL 12.5 MG TABLET PO SCH ×2 (10:03→21:50)
[2017-05-27] MEDS: MONTELUKAST 10 MG TABLET PO SCH (21:50)
[2017-05-27] MEDS: ATORVASTATIN 20 MG TABLET PO SCH (21:50)
[2017-05-28] MEDS: ENOXAPARIN 30 MG/0.3 ML SYRINGE SUBCUT SCH (05:10)
[2017-05-28 05:42] LABS: Basophils % 0.4 % (0.0-0.8); Eosinophils # 0.1 10*3/uL (0.0-0.87); Eosinophils % 1.5 % (0.00-10.9); Hematocrit 37.5 VOL% (42.0-52.0); Hemoglobin 11.6 GM/DL (14.0-18.0); Immature Granulocytes % 0.2 %; Immature Granulocytes Absolute 0.01 #; Lymphocytes # 1.4 10*3/uL (1.4-4.0); Lymphocytes % 29.1 % (21.2-54.2); Mean Corpuscular HGB Conc 30.9 GM/DL (32-36); Mean Corpuscular Hemoglobin 25 PG (27-34); Mean Corpuscular Volume 80.6 FL (87-102); Mean Platelet Volume 11.2 FL (9.6-12.0); Monocytes # 0.6 10*3/uL (0.11-0.8); Monocytes % 12.8 % (1.7-12.7); Neutrophils # 2.6 10*3/uL (1.4-7.4); Platelet Count 164 T/CUMM (130-400); Red Blood Count 4.65 MC/CUMM (3.8-5.5); White Blood Count 4.7 T/CUMM (4-12)
[2017-05-28 06:13] LABS: Calcium 8.3 MG/DL (8.5-10.1); Magnesium 2.5 MG/DL (1.8-2.4); Osmolality,Calculated 290.8 MOS/KG (273-304); Potassium 3.8 MMOL/L (3.5-5.1)
[2017-05-28] MEDS: INSULIN LISPRO 100 UNIT/ML SUBCUT SCH ×3 (08:25→17:51)
[2017-05-28 11:56] VITALS: BP 149/84
[2017-05-28] MEDS: amLODIPine 10 MG TABLET PO SCH (12:04)
[2017-05-28] MEDS: POTASSIUM CHLORIDE 20 MEQ TABLET PO SCH (12:04)
[2017-05-28] MEDS: VALSARTAN 160 MG TABLET PO SCH (12:04)
[2017-05-28] MEDS: CARVEDILOL 12.5 MG TABLET PO SCH (12:04)
[2017-05-28] MEDS: FUROSEMIDE 40 MG/4 ML VIAL IV SCH ×2 (12:05→17:51)
[2017-05-28] MEDS: ASPIRIN EC 325 MG TABLET PO SCH (12:05)
[2017-05-28] MEDS: INSULIN GLARGINE 100 UNIT/ML SUBCUT SCH (12:06)
[2017-05-28] MEDS ORDERED: CARVEDILOL 25 MG TABLET PO SCH (21:00)
[2017-05-29] MEDS ORDERED: INSULIN GLARGINE 100 UNIT/ML SUBCUT SCH (09:00)
== END 2017-05-28 17:30 | disposition home or self-care (01) | DRG 291 ==
LOC: N.ED 21:23 → N.EDINP 21:23 → N.TELES 05-25 03:18
PROVIDERS: ADMIT Internal Medicine; ATTEND Internal Medicine